=== PATIENT | female | born 1995 | race Caucasian/White ===

== ENCOUNTER 2019-01-24 13:37 | Emergency (ER) | payer BC ==
[~2019-01-24] VITALS: Ht 157.5 cm; Wt 97.2 kg
[2019-01-24] MEDS ORDERED: IV NORMAL SALINE 1,000ML 1,000 ML IV SCH (14:03)
[2019-01-24] MEDS ORDERED: DICYCLOMINE HCL 20 MG TABLET ONE (14:07)
--- NOTE | 2019-01-24 14:07 | NUR ---
tech called US in. She is @ [employer] & will be here shortly.
--- NOTE | 2019-01-24 14:08 | PHYS DOC ---
Past History Past Medical History: Other Additional Past Medical Histor: ovarian cyst Past Surgical History: Tonsillectomy, Other Additional Past Surgical Histo: wisdom teeth removed Smoking: Non-smoker Alcohol Use: None Drug Use: None Adult General Chief Complaint Chief Complaint: ABDOMINAL PAIN IN HPI HPI Patient is a 24-year-old female presents with nausea and vomiting and upper abdominal to right upper quadrant abdominal pain after eating a chalupa of from [employer] yesterday. She has had 4 episodes of vomiting. No blood in the emesis. She is approximately 17 weeks with a last menstrual period of September 24, 2018. 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 She has had no vaginal bleeding or discharge. No dysuria. No fever. No diarrhea. She is visiting [place] from [place]. Nothing makes the symptoms better or worse.[] Review of Systems Review of Systems Constitutional: Denies fever or chills [] Eyes: Denies change in visual acuity, redness, or eye pain [] HENT: Denies nasal congestion or sore throat [] Respiratory: Denies cough or shortness of breath [] Cardiovascular: No chest pain or palpitations[] GI: See history of present illness[] : Denies dysuria or hematuria [] Musculoskeletal: Denies back pain or joint pain [] Integument: Denies rash or skin lesions [] Neurologic: Denies headache, focal weakness or sensory changes [] Endocrine: Denies polyuria or polydipsia [] All other systems were reviewed and found to be within normal limits, except as documented in this note. Allergies Allergies Allergies Coded Allergies Type Severity Reaction Last Updated Verified No Known Drug Allergies 01/24/19 No Physical Exam Physical Exam Constitutional: Well developed, well nourished, no acute distress, non-toxic appearance. [] HENT: Normocephalic, atraumatic, bilateral external ears normal, oropharynx moist, no oral exudates, nose normal. [] Eyes: PERRLA, EOMI, conjunctiva normal, no discharge. [] Neck: Normal range of motion, no tenderness, supple, no stridor. [] Cardiovascular:Heart rate regular rhythm, no murmur [] Lungs & Thorax: Bilateral breath sounds clear to auscultation [] Abdomen: Bowel sounds normal, soft, epigastric to right upper quadrant tenderness. Fundus is below the umbilicus, heart tones are present. no pulsatile masses. [] Skin: Warm, dry, no erythema, no rash. [] Back: No tenderness, no CVA tenderness. [] Extremities: No tenderness, no cyanosis, no clubbing, ROM intact, no edema. [] Neurologic: Alert and oriented X 3, normal motor function, normal sensory function, no focal deficits noted. [] Psychologic: Affect normal, judgement normal, mood normal. [] Current Patient Data Vital Signs Vital Signs Date Time Temp Pulse Resp B/P (MAP) Pulse Ox O2 Delivery O2 Flow Rate FiO2 01/24/19 13:45 98.8 81 18 99 Room Air EKG EKG [] Radiology/Procedures Radiology/Procedures PROCEDURE: ABDOMEN COMPLETE ABDOMEN COMPLETE History: Right upper quadrant abdominal pain, Comparison: None. Findings: Multiple sonographic images of the abdomen are submitted. There is no abnormality of the visualized pancreas. Gallbladder is present without intraluminal abnormality, wall thickening, pericholecystic fluid. Right lobe of the liver measured 16.5 cm longitudinal, hepatic echotexture within normal limits. Common bile duct is within normal limits at 0.2 cm. Right kidney measured 11.3 x 4.2 x 4.5 cm, no hydronephrosis. Left kidney measured 11.6 x 5 x 6 cm no hydronephrosis although left kidney suboptimally visualized due to bowel gas. Spleen measured about 12 cm. There is segmental visualization of the inferior vena cava. Abdominal aortic caliber is within normal limits. Impression: 1. No significant abnormality is demonstrated, suboptimal visualization of the left kidney on this exam.[] Course & Med Decision Making Course & Med Decision Making Pertinent Labs and Imaging studies reviewed. (See chart for details) ED course: Patient arrived, was placed in bed, and tolerated exam well. IV access was established, IV fluids were administered along with medication for nausea and abdominal pain. At 1440 reevaluated the patient, she was feeling much better with the above interventions. At this time awaiting ultrasound evaluation. The ketones were noted in her urine so and additional IV with dextrose was ordered. 1530: She was transported to and from radiology with any complications. She was able to tolerate oral intake of juice, after the return of laboratory and imaging findings, these were discussed with the patient who voiced understanding. All questions were answered. She was discharged in improved condition. Medical decision making: Patient does not appear to have cholecystitis, there may be some aspect of gallbladder dysfunction given her however there is no laboratory abnormality that is significant for cholecystitis. No evidence of pancreatitis. No evidence of oral intake intolerance. She is ketotic and a dressing that with both oral as well as IV means. We'll continue to address this through oral means at home with antiemetics. We'll address the stomach discomfort with Bentyl which is category B. There is no evidence of significant intra-abdominal surgical pathology. Patient's age is positive indicating no need for Rh immunoglobulin. No evidence of urinary tract infection. This may also be related to issues with the food that she ingested. There is no need for antibiotics at this time. No evidence of surgical intra- abdominal pathology.[] Dragon Disclaimer Dragon Disclaimer This electronic medical record was generated, in whole or in part, using a voice recognition dictation system. Departure Departure: Impression: Primary Impression: Abdominal pain affecting Additional Impression: Nausea and vomiting Disposition: 01 HOME, SELF-CARE Condition: IMPROVED Patient Instructions: Abdominal Pain, Nausea and Vomiting Additional Instructions: Drink plenty of fluids, frequent small sips. No fatty foods, no milk, and no pepper for the next 48 hours. For the next 48 hours eat a diet rich in carbohydrates with foods such as bananas, rice, applesauce, and toast. Follow-up with your regular doctor in 2 days. Return to the ER if unable to tolerate liquids, blood in the emesis or stool, vaginal bleeding, or any other concerns. Scripts Ondansetron Hcl (ZOFRAN) 4 Mg Tablet 1 TAB PO Q6HRS for nausea or vomiting, #20 TAB Prov: JENIFER CROCKER DO 01/24/19 Dicyclomine Hcl (DICYCLOMINE HCL) 20 Mg Tablet 1 TAB PO TID for abdomonial pain, #30 TAB 0 Refills Prov: JENIFER CROCKER DO 01/24/19 Problem Qualifiers Additional Impression: Nausea and vomiting Vomiting type: unspecified Vomiting Intractability: non-intractable Qualified Codes: R11.2 - Nausea with vomiting, unspecified JENIFER CROCKER DO Jan 24, 2019 14:08
[2019-01-24] MEDS ORDERED: ONDANSETRON PF 4 MG/2 ML VIAL. IVP ONE (14:15)
[2019-01-24] MEDS ORDERED: DICYCLOMINE HCL 20 MG TABLET PO SCH (14:30)
[2019-01-24 14:37] LABS: BASO % 0 % (0-3); EOS % 0 % (0-3); HEMOGLOBIN 14.6 g/dL (12.0-15.5); LYMPH # 1.1 x10^3/uL (1.0-4.8); LYMPH % 7 % (24-48); MEAN CORPUSCULAR HEMOGLOBIN 32 pg (25-35); MEAN CORPUSCULAR HGB CONC 34 g/dL (31-37); MEAN CORPUSCULAR VOLUME 93 fL (79-100); MONO % 6 % (0-9); NEUT # 13.7 x10^3uL (1.8-7.7); NEUT % 86 % (31-73); PLATELET COUNT 194 x10^3/uL (140-400); RED BLOOD COUNT 4.62 x10^6/uL (3.50-5.40); RED CELL DISTRIBUTION WIDTH 13.7 % (11.5-14.5); WHITE BLOOD COUNT 15.8 x10^3/uL (4.0-11.0)
[2019-01-24 14:39] LABS: BACTERIA,URINE FEW /HPF (0-FEW); BILIRUBIN,URINE NEG (NEG); CLARITY,URINE CLEAR; COLOR,URINE YELLOW; GLUCOSE,URINE NEG (NEG); NITRITE,URINE NEG (NEG); RBC,URINE 0 /HPF (0-2); UROBILINOGEN,URINE 0.2 mg/dL (0.2 mg/dL); WBC,URINE OCC /HPF (0-4)
[2019-01-24 14:40] LABS: SQUAMOUS EPITHELIAL CELL,UR OCC /LPF
[2019-01-24 14:53] LABS: ALBUMIN 2.8 g/dL (3.4-5.0); ALBUMIN/GLOBULIN RATIO 0.7 (1.0-1.7); CALCIUM 8.7 mg/dL (8.5-10.1); CREATININE 0.6 mg/dL (0.6-1.0); GFR 123.9; POTASSIUM 3.6 mmol/L (3.5-5.1); TOTAL BILIRUBIN 0.5 mg/dL (0.2-1.0); TOTAL PROTEIN 6.7 g/dL (6.4-8.2)
[2019-01-24] MEDS ORDERED: IV DEXTROSE 5% - 0.9 % NACL 1,000 ML IV ONE (15:00)
--- NOTE | 2019-01-24 15:29 | RAD ---
ABDOMEN COMPLETE History: Right upper quadrant abdominal pain, Comparison: None. Findings: Multiple sonographic images of the abdomen are submitted. There is no abnormality of the visualized pancreas. Gallbladder is present without intraluminal abnormality, wall thickening, pericholecystic fluid. Right lobe of the liver measured 16.5 cm longitudinal, hepatic echotexture within normal limits. Common bile duct is within normal limits at 0.2 cm. Right kidney measured 11.3 x 4.2 x 4.5 cm, no hydronephrosis. Left kidney measured 11.6 x 5 x 6 cm no hydronephrosis although left kidney suboptimally visualized due to bowel gas. Spleen measured about 12 cm. There is segmental visualization of the inferior vena cava. Abdominal aortic caliber is within normal limits. Impression: 1. No significant abnormality is demonstrated, suboptimal visualization of the left kidney on this exam. Electronically signed by: Frantz Browne MD (01/24/2019 3:26 PM) [facility]
[2019-01-24] MEDS ORDERED: ONDA4TAB7 PO (15:42)
[2019-01-24] MEDS ORDERED: DICY20TA3 PO (15:42)
[2019-01-24 15:54] VITALS: BP 121/64
[2019-01-24 21:08] LABS: % LYMPHS 6 % (24-48); % MONOS 4 % (0-10); % SEGS 90 % (35-66)
[2019-01-24 21:09] LABS: ANISOCYTOSIS SLIGHT; PLT ESTIMATE ADEQUATE (ADEQUATE)
== END 2019-01-24 15:48 | disposition home or self-care (01) ==
LOC: ER 13:37 → EDBD 13:37 → ER 15:48
DX: O21.9 Vomiting of pregnancy, unspecified (principal); R10.11 Right upper quadrant pain; Z3A.17 17 weeks gestation of pregnancy
CPT/HCPCS: 36415; 76700; 80053; 81001; 83690; 85007; 85025; 86901; 96361; 96374; 99285; J2405; J7042; J7030